=== PATIENT | female | born 1990 | race Caucasian/White ===

== ENCOUNTER 2019-03-23 14:02 | Emergency (ER) | payer SELFPAY ==
[~2019-03-23] VITALS: Ht 175.3 cm; Wt 113.4 kg
[2019-03-23] MEDS ORDERED: ACETAMINOPHEN 325 MG TABLET PO ONE (14:30)
[2019-03-23] MEDS ORDERED: KETOROLAC 60 MG/2 ML VIAL IM ONE (14:30)
[2019-03-23] MEDS ORDERED: CYCLOBENZAPRINE 10 MG (FLEXERIL) TAB PO SCH (14:30)
--- NOTE | 2019-03-23 14:43 | ED Back Pain ---
General Chief Complaint: Back Problems Stated Complaint: BACK/RT LEG PAIN Nursing Triage Note: lifted a kiddie pool on thursday with some water in it and had lower back pain that radiated down right leg immediately after standing up. Has had hx of back pain in the past but has not had any imaging studies done before. Pain is rated at 10/10. Has not had anything for pain today. Nursing Sepsis Screen: No Definite Risk History of Present Illness Date Seen by Provider: Mar 23, 2019 Time Seen by Provider: 14:20 Initial Comments The patient is a 28-year-old female who is otherwise healthy and takes no chronic medications. She does have a history of recurrent episodes of right sided low back discomfort with radiation down the right leg. She presents with concern for acute onset of atraumatic acute on chronic right-sided low back pain with radiation down the right leg with onset after using both hands to grape picker a kiddie pool which was full of trace. Symptoms had onset yesterday. Patient reports having taken a Flexeril yesterday without relief of symptoms but has not had anything for pain today. She denies fevers, nausea or vomiting, abdominal pain, dysuria or hematuria, flank pain, loss of bowel or bladder control, saddle anesthesia, new lower extremity weakness, new urinary retention, use of intravenous illegal drugs. Allergies and Home Medications Allergies Coded Allergies: No Known Drug Allergies (Unverified , 03/23/19) Patient Home Medication List Home Medication List Reviewed: Yes Review of Systems Constitutional: see HPI All Other Systems Reviewed Negative Unless Noted: Yes Past Jefwdem-Uhhzds-Luywfr Hx Past Med/Social Hx: Reviewed Nursing Past Med/Soc Hx Patient Social History Recent Foreign Travel: No Contact w/Someone Who Travel: No Recent Infectious Disease Expo: No Family Medical History Reviewed Nursing Family Hx Physical Exam Vital Signs Vital Signs - First Documented 03/23/19 14:15 Temp 97.8 Pulse 101 Resp 18 B/P (MAP) 145/95 (112) Pulse Ox 97 Capillary Refill : Less Than 3 Seconds Height, Weight, BMI Height: 5'9.00" Weight: 250lbs. oz. 113.737570na; BMI Method:Stated General Appearance: No Apparent Distress This is a younger female appearing nontoxic and in no acute distress. Head is normocephalic and atraumatic. Neck is supple and nontender. Oropharynx is moist. Lungs clear to auscultation all stations. There is a normal S1 and S2 without rubs or gallops and capillary refill is appropriate, wasn't seconds globally. Abdomen is soft, nontender and nondistended. Skin is warm and dry without cyanosis, clubbing or edema. Psychiatrically, the patient demonstrates appropriate mood and affect and is alert. Examination of the back reveals no erythema, warmth, swelling, step-offs or deformities. There is mild tenderness to the low lumbar midline with tenderness radiating down over the superior aspect of the right buttock over the right hip and down the lateral aspect of the right leg, reaching all the way to the anterior aspect of the right ankle. Straight leg raise is positive on the right. There is no joint irritability to the right lower extremity. There is no erythema, warmth, swelling or calf tenderness noted to the right lower extremity. The right lower extremity is neurovascularly intact with strength 5 out of 5, sensation intact light touch and ulnar due to patient's, DP and PT pulses 2+, capillary refill less than 2 seconds, foot warm and well-perfused. Progress/Results/Core Measures Results/Orders Lab Results Laboratory Tests Test 03/23/19 14:30 Range/Units Urine Color YELLOW Urine Clarity CLEAR Urine pH 6.0 5-9 Urine Specific [place] 1.025 H 1.016-1.022 Urine Protein NEGATIVE NEGATIVE Urine Glucose (UA) NEGATIVE NEGATIVE Urine Ketones NEGATIVE NEGATIVE Urine Nitrite NEGATIVE NEGATIVE Urine Bilirubin NEGATIVE NEGATIVE Urine Urobilinogen 0.2 NORMAL MG/DL Urine Leukocyte Esterase 1+ H NEGATIVE Urine RBC (Auto) NEGATIVE NEGATIVE Urine RBC NONE /HPF Urine WBC 2-5 /HPF Urine Squamous Epithelial Cells 2-5 /HPF Urine Crystals NONE /LPF Urine Bacteria FEW H /HPF Urine Casts NONE /LPF Urine Mucus SMALL H /LPF Urine Culture Indicated NO Urine Test NEGATIVE NEGATIVE My Orders Orders - SARKIS GANDARA MD Ua Culture If Indicated (03/23/19 14:24) Hcg,Qualitative Urine (03/23/19 14:24) Ketorolac Injection (Toradol Injection) (03/23/19 14:30) Acetaminophen Tablet/Caplet (Tylenol T (03/23/19 14:30) Cyclobenzaprine Tablet (Flexeril Tablet) (03/23/19 14:30) Morphine Injection (Morphine Injection (03/23/19 15:22) Lidocaine 4% Patch (Salonpas 4% Patch) (03/23/19 15:22) Medications Given in ED Current Medications Medications Dose Ordered Sig/Evangelista Route Start Time Stop Time Status Last Admin Dose Admin Acetaminophen 975 mg ONCE ONCE PO 03/23/19 14:30 03/23/19 14:31 DC 03/23/19 14:40 975 MG Ketorolac Tromethamine 60 mg ONCE ONCE IM 03/23/19 14:30 03/23/19 14:31 DC 03/23/19 14:40 60 MG Vital Signs/I&O 03/23/19 14:15 Temp 97.8 Pulse 101 Resp 18 B/P (MAP) 145/95 (112) Pulse Ox 97 Blood Pressure Mean: 112 Progress Progress Note : Time: 14:42 Progress Note Clinical examination reassuring. A young woman with acute on chronic right radicular low back pain without red flags. Will treat symptomatically as per nursing flow sheet and plan likely discharge home with medication for symptomatically management and referral to primary care. We will check urinalysis and urine testing. Patient understands and agrees with the plan of care. Update 1614: Patient feels quite a bit better after medication as per nursing flow sheet for symptomatic management. She feels ready to go home. We'll discharge with prescriptions for anti-inflammatories and muscle relaxants and will refer to primary care. Patient understands that if she feels worse instead of better or develops other symptoms of concern that she should return immediat massimo for reevaluation. All questions are answered. She does have very mild evidence of urinary tract infection so we'll prescribe some Macrobid for this. Departure Impression Primary Impression: Dorsalgia of lumbosacral region Disposition: 01 HOME, SELF-CARE Condition: Improved Departure-Patient Inst. Decision time for Depature: 16:15 Referrals: NO,LOCAL PHYSICIAN (PCP/Family) Primary Care Physician Patient Instructions: Low Back Pain in Adults Add. Discharge Instructions: Follow-up with [facility] to establish care with a primary care physician of your own. Your primary care physician will be able to help manage your episodes of back discomfort and will be able to refer you as needed for further testing and even for tension from spinal specialists if needed. Use the anti- inflammatory pain medication and muscle relaxants as described. Return immediately to the emergency department if your symptoms worsen or if other new symptoms of concern develop. You do have some mild evidence of urinary tract infection so we are also prescribing an antibiotic to cure this problem today. Scripts Nitrofurantoin Monohyd/M-Cryst (Macrobid 100 mg Capsule) 100 Mg Capsule 1 TAB PO BID for 5 Days, #10 CAP Prov: SARKIS GANDARA MD 03/23/19 Acetaminophen (Tylenol) 325 Mg Tablet 975 MG PO Q8H for Pain, #60 TAB Prov: SARKIS GANDARA MD 03/23/19 Cyclobenzaprine HCl (Cyclobenzaprine HCl) 10 Mg Tablet 10 MG PO Q8H PRN for SPASMS, #15 TAB 0 Refills Prov: SARKIS GANDARA MD 03/23/19 Ibuprofen (Ibuprofen) 800 Mg Tablet 800 MG PO Q8H PRN for PAIN, #30 TAB 0 Refills Prov: SARKIS GANDARA MD 03/23/19 Methylprednisolone (Medrol) 4 Mg Tab.ds.pk 4 MG PO UD for 6 Days, #21 PKG PER DOSE PACK INSTRUCTIONS Prov: SARKIS GANDARA MD 03/23/19 SARKIS GANDARA MD Mar 23, 2019 14:43
[2019-03-23] MEDS ORDERED: morphine INJ 10 MG/ML 1ML (SYR OR VIAL) IVP STA (15:22)
[2019-03-23] MEDS ORDERED: LIDOCAINE 4% (SALONPAS) PATCH TOP STA (15:22)
[2019-03-23 15:23] LABS: BACTERIA,URINE FEW /HPF; BILIRUBIN,URINE NEGATIVE (NEGATIVE); CLARITY,URINE CLEAR; COLOR,URINE YELLOW; GLUCOSE, URINE (UA) NEGATIVE (NEGATIVE); KETONES,URINE NEGATIVE (NEGATIVE); LEUKOCYTE ESTERASE ,URINE 1+ (NEGATIVE); NITRITE,URINE NEGATIVE (NEGATIVE); PROTEIN,URINE NEGATIVE (NEGATIVE); UROBILINOGEN,URINE 0.2 MG/DL (NORMAL)
[2019-03-23] MEDS ORDERED: CYCL10TA9 PO (16:18)
[2019-03-23] MEDS ORDERED: METH4TAB PO (16:18)
[2019-03-23] MEDS ORDERED: IBUP-1780 PO (16:18)
[2019-03-23] MEDS ORDERED: ACET325T38 PO (16:19)
[2019-03-23] MEDS ORDERED: NITR-65 PO (16:19)
[2019-03-23 16:31] VITALS: BP 127/74
== END 2019-03-23 16:32 | disposition home or self-care (01) ==
LOC: ER FS 14:05
DX: M54.5 Low back pain (principal)
CPT/HCPCS: 81000; 84703; 96372; 96374; 99284